=== PATIENT | male | born 1975 | race Caucasian/White ===

== ENCOUNTER 2016-11-24 16:28 | Emergency (ER) | payer BC ==
[~2016-11-24] VITALS: Ht 182.9 cm; Wt 74.2 kg
[2016-11-24 17:09] LABS: ADD MIUA? NO; BILIRUBIN NEGATIVE; BLOOD NEGATIVE; COLOR YELLOW ((YELLOW)); GLUCOSE (STRIP) NEGATIVE; KETONES NEGATIVE; LEUKOCYTES NEGATIVE; NITRITE NEGATIVE; PROTEIN (STRIP) NEGATIVE; SPECIFIC GRAVITY 1.026 (1.000-1.030); UROBILINOGEN 0.2 MG/DL (0.2-1.0)
[2016-11-24 17:23] LABS: HEMATOCRIT 45.2 % (38.0-50.0); MCH 30.9 PG (29.0-34.0); MCHC 35.2 G/DL (30.0-36.0); MCV 87.8 FL (86-99); MEAN PLAT.VOLUME 10.2 uM^3 (9.0-12.4); PLATELET COUNT 291 K/uL (156-360); RBC DIS.WIDTH-CV 12.3 % (11.8-14.6); RBC DIS.WIDTH-SD 39.6 % (39-53); RED BLOOD COUNT 5.15 M/uL (4.00-5.50); WHITE BLOOD COUNT 6.5 K/uL (4.1-10.2)
[2016-11-24 17:30] LABS: CHLORIDE 106 mEq/L (99-109); POTASSIUM 3.6 mEq/L (3.7-5.4); SODIUM 141 mEq/L (136-147)
[2016-11-24 17:32] LABS: GLUCOSE 90 mg/dL (70-99)
[2016-11-24 17:33] LABS: ANION GAP 11 MEQ/L (2-14)
[2016-11-24 17:36] LABS: GFR ESTIMATE (CALCULATED) > 59 mL/min/; UREA NITROGEN (BUN) 11 mg/dL (9-23)
[2016-11-24] MEDS ORDERED: INDOCIN50 MG PO (19:55)
[2016-11-24] MEDS ORDERED: NORCO 7.5/321 TABLET PO (19:55)
[2016-11-24] MEDS ORDERED: VIBRAMYCIN100 MG PO (19:55)
[2016-11-24 20:32] VITALS: BP 121/78
== END 2016-11-24 20:32 | disposition home or self-care (01) ==
LOC: EME 16:28
PROVIDERS: Physician Assistant
DX: N45.2 Orchitis (principal)
CPT/HCPCS: 76870; 80048; 81003; 85027; 93975; 99281; 99285; J0696; J1885; J3010; J7050

== ENCOUNTER 2018-02-26 15:31 | Emergency (ER) | payer OTHER ==
[~2018-02-26] VITALS: Ht 182.9 cm; Wt 61.0 kg
[~2018-02-26 15:31] MED LIST: INDOCIN50 MG PO; NORCO 7.5/321 TABLET PO; VIBRAMYCIN100 MG PO
[2018-02-26] MEDS ORDERED: XANAX1 MG PO (18:17)
[2018-02-26 18:36] VITALS: BP 125/72
== END 2018-02-26 18:38 | disposition home or self-care (01) ==
LOC: EME 15:31
DX: F41.1 Generalized anxiety disorder (principal); F31.32 Bipolar disorder, current episode depressed, moderate
CPT/HCPCS: 90839; 99281; 99283